=== PATIENT | female | born 1980 ===

== ENCOUNTER 2016-12-29 10:36 | Emergency (ER) | payer OTHER ==
[2016-12-29 10:51] VITALS: TEMP 98
[2016-12-29 10:52] VITALS: BMI 45.7
--- NOTE | 2016-12-29 11:39 | ED PDOC ---
HPI: Abdomen Time Seen by Provider: 12/29/16 11:14 Chief Complaint (Nursing): Abdominal Pain History Per: Patient History/Exam Limitations: no limitations Onset/Duration Of Symptoms: Days Outside of [place] travel?: No Current Symptoms Are (Timing): Still Present Pain Scale Rating Of: 8 Location Of Pain/Discomfort: RUQ, LLQ Quality Of Discomfort: "Pain" Exacerbating Factors: Movement Alleviating Factors: OTC Meds Last Bowel Movement: Yesterday Additional Complaint(s): 36 y/o F with no significant PMHx presents for flank pain for the past 4 days. Patient states pain started last Monday when she woke up, no related to any particular events. She has been taking advil with some improvement but states that the pain is getting worse if she does not take pain meds. Pain is now 8/10 , worsen with movement or when she bends forward and improves lying in bed. Denies Hx of similar problems in the past. Denies dysuria, diarrhea, fever, VB, Vaginal discharge. Abnormal Vaginal Bleeding: No Last Menstral Period: 12/21/16 Past Medical History Vital Signs: Last Vital Signs Temp 98 F 12/29/16 10:50 Pulse 82 12/29/16 14:18 Resp 16 12/29/16 14:18 BP 122/81 12/29/16 14:18 Pulse Ox 100 12/29/16 14:18 - Medical History PMH: No Chronic Diseases - Surgical History Surgical History: Cholecystectomy - Family History Family History: States: Diabetes - Social History Current smoker - smoking cessation education provided: No Alcohol: Occasional - Home Medications Home Medications: Ambulatory Orders Medication Instructions Recorded Ciprofloxacin HCl [Cipro] 500 mg PO BID #20 tab 12/29/16 - Allergies Allergies/Adverse Reactions: Allergies Allergy/AdvReac Type Severity Reaction Status Date / Time No Known Allergies Allergy Verified 12/29/16 11:14 Review of Systems ROS Statement: Except As Marked, All Systems Reviewed And Found Negative Genitourinary Female: Positive for: Other (Flank pain) Physical Exam - Reviewed Nursing Documentation Reviewed: Yes Vital Signs Reviewed: Yes - Physical Exam Appears: Positive for: Uncomfortable (due to pain) Skin: Positive for: Normal Color, Warm Eye Exam: Positive for: EOMI, PERRL Respiratory: Positive for: Decreased Breath Sounds. Negative for: Crackles, Rales, Wheezing, Respiratory Distress Gastrointestinal/Abdominal: Positive for: Soft, Tenderness (RUQ mild tenderness. Tineo sign negative. L/Flank tenderness. ). Negative for: Mass, Distended, Guarding, Rebound Back: Positive for: L CVA Tenderness (Questionable). Negative for: R CVA Tenderness Extremity: Negative for: Pedal Edema, Calf Tenderness Neurologic/Psych: Positive for: Alert, Oriented - Laboratory Results Urine POC: Negative Urine dip results: Positive for: Blood - ECG O2 Sat by Pulse Oximetry: 97 - Progress ED Course And Treament: CT abd and pelvis negative for acute disease that correlates with patient symptoms. Hepatic Steatosis and IUD noticed. Please see full report. Dipstick shows trace blood Patient pain resolved with Toradol IV Will be discharge and treated for pos UTI Medical Decision Making Medical Decision Makin36 y/o F present for intractable flank pain Kidney stones vs Pyelonephritis vs Muscle spam -UA -CT abd and pelvis w/o contrast -Toradol 30mg IV once Disposition - Clinical Impression Clinical Impression: UTI (urinary tract infection) - Patient ED Disposition Is Patient to be Admitted: No - Disposition Referrals: [facility] [Outside] Disposition: Routine/Home Disposition Time: 14:05 Condition: FAIR Prescriptions: Ciprofloxacin HCl [Cipro] 500 mg PO BID #20 tab Instructions: Urinary Tract Infection in Women (ED) Forms: [facility] (Irish)
[2016-12-29 11:57] LABS: RBC URINE 3 /hpf (0-3); URINE BILIRUBIN NEGATIVE (NEGATIVE); URINE BLOOD NEGATIVE (NEGATIVE); URINE COLOR YELLOW (YELLOW); URINE GLUCOSE (UA) NEG (Normal); URINE KETONE NEGATIVE (NEGATIVE); URINE LEUKOCYTE ESTERASE NEG Leu/uL (Negative); URINE PROTEIN NEGATIVE (NEGATIVE); URINE UROBILINOGEN 0.2-1.0 mg/dL (0.2-1.0); WBC URINE 1 /hpf (0-5)
--- NOTE | 2016-12-29 14:02 | CT ---
PROCEDURE: CT Abdomen and Pelvis without intravenous or oral contrast HISTORY: Unilateral, left flank pain COMPARISON: None. TECHNIQUE: Technique Contiguous axial images of the abdomen and pelvis without intravenous or oral contrast. Radiation dose: Total exam DLP = 1108.73 mGy-cm. This CT exam was performed using one or more of the following dose reduction techniques: Automated exposure control, adjustment of the mA and/or kV according to patient size, and/or use of iterative reconstruction technique. Contrast Dose: FINDINGS: LOWER THORAX: Unremarkable. LIVER: Hepatic steatosis. No focal masses. No intrahepatic bile duct dilatation or perihepatic ascites. Hepatomegaly GALLBLADDER AND BILE DUCTS: Status post cholecystectomy. No abnormality is seen in the gallbladder fossa. PANCREAS: Unremarkable. No ductal dilatation. SPLEEN: Unremarkable. No splenomegaly. ADRENALS: Unremarkable. KIDNEYS AND URETERS: Unremarkable. No hydronephrosis. BLADDER: Unremarkable. No calculus. REPRODUCTIVE: Intrauterine contraceptive device (IUD) identified APPENDIX: Unremarkable. Normal appendix. STOMACH AND BOWEL: Unremarkable. No obstruction. No gross mural thickening. PERITONEUM: Unremarkable. No significant fluid collection. No free air. LYMPH NODES: Unremarkable. No enlarged lymph nodes. VASCULATURE: Unremarkable. No aortic aneurysm. BONES: No acute fracture. OTHER FINDINGS: None . IMPRESSION: No significant or acute findings to account for/ related to the clinical presentation. Additional benign and/or incidental findings described above.
[2016-12-29 14:19] VITALS: BP 122/81; PULSE 82; RESP 16
[2016-12-29 14:28] VITALS: O2SAT 97
== END 2016-12-29 14:20 | disposition home or self-care (01) ==
LOC: H.ER 10:36
DX: N39.0 Urinary tract infection, site not specified (principal)

== ENCOUNTER 2017-06-17 08:09 | Emergency (ER) | payer OTHER ==
[2017-06-17 08:11] VITALS: BMI 42.0
[2017-06-17 08:13] VITALS: BP 125/69; PULSE 79; RESP 16; TEMP 98.2; O2SAT 97
[2017-06-17] MEDS ORDERED: Oxycodone/Acetaminophen 5/325 mg Tab PO STA (09:43)
--- NOTE | 2017-06-17 10:17 | ED PDOC ---
HPI: Headache Time Seen by Provider: 06/17/17 08:54 Chief Complaint (Nursing): Headache Chief Complaint (Provider): headache History Per: Patient History/Exam Limitations: no limitations Onset/Duration Of Symptoms: Days (3 days ago) Current Symptoms Are (Timing): Still Present Additional Complaint(s): 36 y/o female presents to the ED complaining of ongoing headache, onset of 3 days. She denies any fever, neck stiffness, visual changes, or photophobia. Of note, patient took Motrin and Tylenol without relief. Past Medical History Reviewed: Historical Data, Nursing Documentation, Vital Signs Vital Signs: Last Vital Signs Temp 98.2 F 06/17/17 08:12 Pulse 79 06/17/17 08:12 Resp 16 06/17/17 08:12 BP 125/69 06/17/17 08:12 Pulse Ox 97 06/17/17 08:12 - Medical History PMH: No Chronic Diseases - Surgical History Surgical History: Cholecystectomy - Family History Family History: States: Diabetes - Social History Current smoker - smoking cessation education provided: No Ex-Smoker (has not smoked in the last 12 months): No Alcohol: None Drugs: Denies - Home Medications Home Medications: Ambulatory Orders Medication Instructions Recorded Ciprofloxacin HCl [Cipro] 500 mg PO BID #20 tab 12/29/16 oxyCODONE/Acetaminophen [Percocet 1 tab PO Q6 PRN #20 tab 06/17/17 5/325 mg Tab] - Allergies Allergies/Adverse Reactions: Allergies Allergy/AdvReac Type Severity Reaction Status Date / Time No Known Allergies Allergy Verified 12/29/16 11:14 Review of Systems ROS Statement: Except As Marked, All Systems Reviewed And Found Negative Constitutional: Negative for: Fever Eyes: Negative for: Vision Change, Other (photophobia) Musculoskeletal: Negative for: Neck Pain (neck stiffness) Neurological: Positive for: Headache Physical Exam - Reviewed Nursing Documentation Reviewed: Yes Vital Signs Reviewed: Yes - Physical Exam Appears: Positive for: Non-toxic, No Acute Distress Head Exam: Positive for: ATRAUMATIC, NORMOCEPHALIC Skin: Positive for: Normal Color, Warm Eye Exam: Positive for: Normal appearance, EOMI, PERRL ENT: Positive for: Normal ENT Inspection Neck: Positive for: Normal, Painless ROM, Supple Cardiovascular/Chest: Positive for: Regular Rate, Rhythm. Negative for: Murmur Respiratory: Positive for: Normal Breath Sounds. Negative for: Respiratory Distress Gastrointestinal/Abdominal: Positive for: Normal Exam, Soft. Negative for: Tenderness Back: Positive for: Normal Inspection Extremity: Positive for: Normal ROM. Negative for: Pedal Edema, Deformity Neurologic/Psych: Positive for: Alert, Oriented. Negative for: Motor/Sensory Deficits - ECG O2 Sat by Pulse Oximetry: 97 (RA) Pulse Ox Interpretation: Normal Medical Decision Making Medical Decision Making: Time: --09:42 Impression: --headache Plan: --Head CT w/o contrast --ED Urine --Oxycodone 1 tab pO Reassess --10:47 PROCEDURE: CT HEAD WITHOUT CONTRAST. FINDINGS: HEMORRHAGE: No intracranial hemorrhage. BRAIN: Intracranial examination remarkable only for a calcified likely dural-based mass at the left temporoparietal region measuring 1.5 x 1.7 cm probably representing a benign meningioma. This could be proven by brain MRI without contrast a less this is rt been evaluated in the past in this patient. Remainder the brain is normal density with good corticomedullary differentiation appreciate above and below the tentorium. The brainstem appears normal. No hydrocephalus or other suspicious extra-axial collection identified. VENTRICLES: Unremarkable. No hydrocephalus. CALVARIUM: Unremarkable. PARANASAL SINUSES: Unremarkable as visualized. No significant inflammatory changes. MASTOID AIR CELLS: Unremarkable as visualized. No inflammatory changes. OTHER FINDINGS: None. IMPRESSION: Likely largely calcified benign meningioma 1.7 cm left parietal temporal region with remainder of the examination appearing within normal limits. MRI of the brain without contrast can be utilized for greater characterization of this finding. --12:14 PROCEDURE: MRI BRAIN WITHOUT CONTRAST FINDINGS: HEMORRHAGE: None DWI: No evidence of an acute or early subacute infarction. BRAIN PARENCHYMA: 1.6 x 1.2 cm area of signal dephasing is seen at the left temporal lobe corresponding to dense calcification in the same area in prior head CT performed 06/17/2017. In long TR sequences, fluid is suggesting in the periphery of this finding placing this in the extra-axial space. This is suggestive of a benign meningioma. No additional suspicious findings. There is no mass effect. Midline brain anatomy appears normal and there is no suspicious extra-axial collection appreciated throughout. There is no parenchymal edema appreciated. VENTRICLES: Unremarkable. No hydrocephalus. CRANIUM: Unremarkable. ORBITS: Grossly unremarkable. PARANASAL SINUSES/MASTOIDS: Clear VASCULAR SYSTEM: Skull base flow voids intact. OTHER FINDINGS: None. IMPRESSION: No definite acute intracranial findings by standard MR criteria. 1.6 cm likely benign heavily calcified meningioma is identified in the left temporal region corresponding to the CT finding. --12:25 copy of imaging report has been given to the patient. --12:32 Patient reports of improvements of symptoms and is stable for discharge home. Scribe Attestation: Documented by Chris Garcia acting as a scribe for Roslyn De La Rosa MD. Disposition - Clinical Impression Clinical Impression: Meningioma, Headache - Disposition Referrals: [facility] [Outside] Disposition: Routine/Home Disposition Time: 12:32 Condition: IMPROVED Prescriptions: oxyCODONE/Acetaminophen [Percocet 5/325 mg Tab] 1 tab PO Q6 PRN #20 tab PRN Reason: Pain, Moderate (4-7) Instructions: General Headache (ED) Forms: [facility] (Romansh) Print Language: HUNGARIAN
--- NOTE | 2017-06-17 10:48 | CT ---
PROCEDURE: CT HEAD WITHOUT CONTRAST. HISTORY: RODNEY COMPARISON: None available. TECHNIQUE: Axial computed tomography images were obtained through the head/brain without intravenous contrast. Radiation dose: Total exam DLP = 1405.64 mGy-cm. This CT exam was performed using one or more of the following dose reduction techniques: Automated exposure control, adjustment of the mA and/or kV according to patient size, and/or use of iterative reconstruction technique. FINDINGS: HEMORRHAGE: No intracranial hemorrhage. BRAIN: Intracranial examination remarkable only for a calcified likely dural-based mass at the left temporoparietal region measuring 1.5 x 1.7 cm probably representing a benign meningioma. This could be proven by brain MRI without contrast a less this is rt been evaluated in the past in this patient. Remainder the brain is normal density with good corticomedullary differentiation appreciate above and below the tentorium. The brainstem appears normal. No hydrocephalus or other suspicious extra-axial collection identified. VENTRICLES: Unremarkable. No hydrocephalus. CALVARIUM: Unremarkable. PARANASAL SINUSES: Unremarkable as visualized. No significant inflammatory changes. MASTOID AIR CELLS: Unremarkable as visualized. No inflammatory changes. OTHER FINDINGS: None. IMPRESSION: Likely largely calcified benign meningioma 1.7 cm left parietal temporal region with remainder of the examination appearing within normal limits. MRI of the brain without contrast can be utilized for greater characterization of this finding.
--- NOTE | 2017-06-17 12:16 | MRI ---
PROCEDURE: MRI BRAIN WITHOUT CONTRAST HISTORY: Abnormal CT COMPARISON: Head CT without contrast 06/17/2017. TECHNIQUE: Multiplanar, multisequence MR images of the brain were obtained without intravenous contrast enhancement. FINDINGS: HEMORRHAGE: None DWI: No evidence of an acute or early subacute infarction. BRAIN PARENCHYMA: 1.6 x 1.2 cm area of signal dephasing is seen at the left temporal lobe corresponding to dense calcification in the same area in prior head CT performed 06/17/2017. In long TR sequences, fluid is suggesting in the periphery of this finding placing this in the extra-axial space. This is suggestive of a benign meningioma. No additional suspicious findings. There is no mass effect. Midline brain anatomy appears normal and there is no suspicious extra-axial collection appreciated throughout. There is no parenchymal edema appreciated. VENTRICLES: Unremarkable. No hydrocephalus. CRANIUM: Unremarkable. ORBITS: Grossly unremarkable. PARANASAL SINUSES/MASTOIDS: Clear VASCULAR SYSTEM: Skull base flow voids intact. OTHER FINDINGS: None. IMPRESSION: No definite acute intracranial findings by standard MR criteria. 1.6 cm likely benign heavily calcified meningioma is identified in the left temporal region corresponding to the CT finding.
== END 2017-06-17 13:04 | disposition home or self-care (01) ==
LOC: H.ER 08:09
DX: R51 Headache (principal)

== ENCOUNTER 2017-11-04 09:13 | Emergency (ER) | payer SELFPAY ==
[2017-11-04 09:24] VITALS: TEMP 98.2; BMI 43.0
[2017-11-04] MEDS ORDERED: Sodium Chloride 0.9% 1,000 ML IV STA (10:15)
--- NOTE | 2017-11-04 10:32 | ED PDOC ---
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 "kidney infection" Additional Complaint(s): 37yo female c/o R flank pain x3 days, sharp, radiating to front of abdomen, denies urinary symptoms, fever, nausea/vomiting or diarrhea. No rash. No weakness. Had her gallbladder out several years ago. Past Medical History Reviewed: Historical Data, Nursing Documentation, Vital Signs Vital Signs: Last Vital Signs Temp 98.2 F 11/04/17 14:30 Pulse 68 11/04/17 14:30 Resp 14 11/04/17 14:30 BP 116/75 11/04/17 14:30 Pulse Ox 98 11/04/17 14:30 - Medical History PMH: No Chronic Diseases Denies: Chronic Kidney Disease - Surgical History Surgical History: Cholecystectomy (2009) - Family History Family History: States: Diabetes - Living Arrangements Living Arrangements: With Family - Social History Current smoker - smoking cessation education provided: No - Home Medications Home Medications: Ambulatory Orders Medication Instructions Recorded Ciprofloxacin HCl [Cipro] 500 mg PO BID #20 tab 12/29/16 oxyCODONE/Acetaminophen [Percocet 1 tab PO Q6 PRN #20 tab 06/17/17 5/325 mg Tab] Ciprofloxacin [Cipro] 500 mg PO BID #14 tab 11/04/17 Naproxen [Naprosyn] 500 mg PO BID PRN #14 tablet 11/04/17 - Allergies Allergies/Adverse Reactions: Allergies Allergy/AdvReac Type Severity Reaction Status Date / Time No Known Allergies Allergy Verified 12/29/16 11:14 Physical Exam - Reviewed Nursing Documentation Reviewed: Yes Vital Signs Reviewed: Yes - Physical Exam Appears: Positive for: Well, Non-toxic, No Acute Distress Head Exam: Positive for: ATRAUMATIC, NORMAL INSPECTION, NORMOCEPHALIC Skin: Positive for: Normal Color, Warm, DRY Eye Exam: Positive for: EOMI, Normal appearance, PERRL ENT: Positive for: Normal ENT Inspection Neck: Positive for: Normal, Painless ROM Cardiovascular/Chest: Positive for: Regular Rate, Rhythm Respiratory: Positive for: CNT, Normal Breath Sounds Gastrointestinal/Abdominal: Positive for: Soft, Tenderness (R upper). Negative for: Guarding Back: Positive for: R CVA Tenderness. Negative for: Muscle Spasm Extremity: Positive for: Normal ROM Neurologic/Psych: Positive for: Alert, Oriented - Laboratory Results Result Diagrams: 11/04/17 11:10 11/04/17 11:10 Urine POC: Negative Urine dip results: Positive for: Blood. Negative for: Leukocyte Esterase - ECG O2 Sat by Pulse Oximetry: 96 Pulse Ox Interpretation: Normal Medical Decision Making Medical Decision Making: workup for R flank pain initiated r/o UTI/pyelo/renal colic, less likely retained gallstone, liver pathology, pneumonia or other pain medicine and IVF ordered labs and CT report reviewed Given clinical symptoms start antibiotics until culture negative Improved over course of ED stay, ambulating, afebrile and vitals stable Disposition - Clinical Impression Clinical Impression: Back pain, Flank pain - Patient ED Disposition Is Patient to be Admitted: No Counseled Patient/Family Regarding: Studies Performed, Diagnosis, Need For Followup, Rx Given - Disposition Referrals: [facility] [Outside] Disposition: Routine/Home Disposition Time: 14:01 Condition: STABLE Additional Instructions: Drink plenty of fluids. Take medications as directed. Take antibiotic (cipro) until urine culture negative. Prescriptions: Ciprofloxacin [Cipro] 500 mg PO BID #14 tab Naproxen [Naprosyn] 500 mg PO BID PRN #14 tablet PRN Reason: Pain, Moderate (4-7) Instructions: Heel Pain (Caused by Plantar Fasciitis), Flank Pain Forms: [facility] (Kenyan) Print Language: PORTUGUESE
[2017-11-04 11:14] LABS: SQUAMOUS EPITHIAL 3 /hpf (0-5); URINE BACTERIA RARE (<OCC); URINE BILIRUBIN NEGATIVE (NEGATIVE); URINE BLOOD MODERATE (NEGATIVE); URINE CLARITY SLIGHTY-CLOUDY (Clear); URINE COLOR YELLOW (YELLOW); URINE GLUCOSE (UA) NEG (Normal); URINE LEUKOCYTE ESTERASE NEG Leu/uL (Negative); URINE PROTEIN NEGATIVE (NEGATIVE); URINE UROBILINOGEN 0.2-1.0 mg/dL (0.2-1.0)
[2017-11-04 11:22] LABS: BASO % 0.5 % (0.0-2.0); EOS # 0.1 K/uL (0.0-0.7); EOS % 1.4 % (0.0-4.0); HEMOGLOBIN 12.6 g/dL (12.0-16.0); LYMPH # 2.5 K/uL (1.0-4.3); LYMPH % 27.5 % (20.0-40.0); MEAN CELL VOLUME 83.1 fl (81.0-99.0); MEAN CORPUSCULAR HEMOGLOBIN 28.3 pg (27.0-31.0); MEAN CORPUSCULAR HGB CONC 34.1 g/dL (33.0-37.0); MEAN PLATELET VOLUME 7.2 fl (7.2-11.7); MONO # 0.6 K/uL (0.0-0.8); MONO % 6.5 % (0.0-10.0); NEUT # 5.8 K/uL (1.8-7.0); NEUT % 64.1 % (50.0-75.0); NRBC % 0.1 % (0.0-0.0); RBC 4.43 Mil/uL (3.80-5.20); RED CELL DISTRIBUTION WIDTH 15.3 % (11.5-14.5); WHITE BLOOD COUNT 9.1 K/uL (4.8-10.8)
--- NOTE | 2017-11-04 11:23 | CT ---
PROCEDURE: CT Abdomen and Pelvis without intravenous contrast HISTORY: R flank pain hx cholecystectomy COMPARISON: Noncontrast abdomen and pelvis CT 12/29/2016. TECHNIQUE: Helical CT of the abdomen and pelvis was performed without oral or intravenous contrast as per referring physician request. Contrast dose: None Radiation dose: Total exam DLP = 1053.43 mGy-cm. This CT exam was performed using one or more of the following dose reduction techniques: Automated exposure control, adjustment of the mA and/or kV according to patient size, and/or use of iterative reconstruction technique. FINDINGS: LOWER THORAX: Unremarkable. LIVER: Homogeneous density seen throughout the liver without gross intrahepatic biliary dilatation or definitive mass appreciable in this noncontrast exam. GALLBLADDER AND BILE DUCTS: Prior cholecystectomy reiterated. PANCREAS: No definite interval change throughout the density of the pancreas. SPLEEN: No definite interval change in the density of the spleen. ADRENALS: Unremarkable appearing bilaterally. KIDNEYS AND URETERS: Unremarkable. No hydronephrosis. No solid mass. VASCULATURE: Unremarkable. No aortic aneurysm. BOWEL: [id number] fecal loading is seen throughout the large bowel with small bowel largely collapsed. No bowel obstruction is identified. No local mesenteric reaction related to bowel. APPENDIX: Unremarkable. Normal appendix. PERITONEUM: Unremarkable. No free fluid. No free air. LYMPH NODES: Unremarkable. No enlarged lymph nodes. BLADDER: Unremarkable. REPRODUCTIVE: There is a a right adnexal cyst identified in the interval measuring 3.2 x 4.5 cm. No significant left adnexal findings. Intrauterine device is again noted in situ. BONES: No acute fracture. OTHER FINDINGS: None. IMPRESSION: 1. No radiodense urolithiasis or obstructive uropathy bilaterally. No significant perinephric reaction bilaterally. 2. Prior cholecystectomy. 3. Interval 4.5 cm right adnexal cyst. Intrauterine device again identified in situ. 4. Normal-appearing appendix. No bowel obstruction, mesenteric edema, ascites or free intraperitoneal gas appreciable.
[2017-11-04 11:27] LABS: ALBUMIN 3.9 g/dL (3.5-5.0); ALT/SGPT 38 U/L (9-52); AST/SGOT 33 U/L (14-36); BLOOD UREA NITROGEN 10 mg/dl (7-17); CALCIUM 9.2 mg/dL (8.4-10.2); GFR AFRICAN-AMERICAN > 60; GFR NON-AFRICAN AMERICAN > 60; LIPASE 61 U/L (23-300)
[2017-11-04 14:44] VITALS: BP 116/75; PULSE 68; RESP 14
--- NOTE | 2017-11-04 15:03 | RAD ---
PROCEDURE: Left Foot Radiographs. HISTORY: L heel pain COMPARISON: None. FINDINGS: BONES: No acute fracture or destructive bony lesion identified. JOINTS: Normal. SOFT TISSUES: Normal. OTHER FINDINGS: Small plantar calcaneal spur identified. IMPRESSION: No acute fracture or dislocation. A small plantar calcaneal spur is identified.
[2017-11-08 13:26] VITALS: O2SAT 96
== END 2017-11-04 15:23 | disposition home or self-care (01) ==
LOC: H.ER 09:13
DX: M54.9 Dorsalgia, unspecified (principal); R10.9 Unspecified abdominal pain
CPT/HCPCS: 73630; 74176; 80053; 81003; 81025; 83690; 85025; 87086; 99283; J1885; J7030